=== PATIENT | male | born 1980 | race Two or more races ===

== ENCOUNTER 2020-07-13 05:59 | Emergency (ER) | payer SELFPAY ==
[~2020-07-13] VITALS: Ht 172.7 cm; Wt 81.6 kg
[2020-07-13 06:05] VITALS: BP 143/66
== END 2020-07-13 06:11 | disposition left against medical advice (07) ==
LOC: EDBD 05:59 → ER 05:59
DX: Z04.3 Encounter for examination and observation following other accident (principal); V49.9XXA Car occupant (driver) (passenger) injured in unspecified traffic accident, initial encounter; Y93.89 Activity, other specified; Y92.89 Other specified places as the place of occurrence of the external cause; Y99.8 Other external cause status